=== PATIENT | male | born 1985 | race African-American/Black ===

== ENCOUNTER 2020-04-02 10:48 | Emergency (ER) | payer MEDICAID ==
[~2020-04-02] VITALS: Ht 177.8 cm; Wt 104.3 kg
--- NOTE | 2020-04-02 10:52 | NUR ---
[id number], FOUND ON THE STREET PASSED OUT, ADMITS TO TOO MUCH ETOH. PT IS AAOX4, NOT IN RESPIRATORY DISTRESS, V/S STABLE, KEPT RESTED AND COMFORTABLE. WILL CONTINUE TO MONITOR.
--- NOTE | 2020-04-02 11:00 | NUR ---
PT SEEN AND EXAMINED BY .
[2020-04-02 11:54] VITALS: BP 127/59
--- NOTE | 2020-04-02 14:14 | NUR ---
Patient given written and verbal discharge instructions. Patient verbalizes understanding of instructions. Patient is ambulatory with steady gait. Refuses offer of detention placement. Patient given list of available shelters in surrounding area.
== END 2020-04-02 14:16 | disposition home or self-care (01) ==
LOC: ER 10:50
DX: F10.129 Alcohol abuse with intoxication, unspecified (principal); Y90.9 Presence of alcohol in blood, level not specified; Z60.2 Problems related to living alone